=== PATIENT | male | born 1950 | race Caucasian/White ===

== ENCOUNTER 2017-12-04 13:57 | Inpatient (IN) | payer MEDICARE, OTHER ==
[~2017-12-04] VITALS: Ht 185.4 cm; Wt 97.3 kg
[~2017-12-04 13:57] MED LIST: ALPR1TAB10 PO; HYDR-3307 PO; LOSA100T6 PO; MORP-52 PO; amlodipine PO; losartan PO
[2017-12-04 16:55] LABS: BASOPHILS # (AUTO) 0.04 x10^3/uL (0-0.1); BASOPHILS % (AUTO) 0 % (0-1); EOSINOPHILS % (AUTO) 2 % (1-7); LYMPHOCYTES # (AUTO) 1.27 x10^3/uL (1-3.4); LYMPHOCYTES % (AUTO) 11 % (22-44); MD NO; MEAN CORPUSCULAR HEMOGLOBIN 31.9 pg (27.5-34.5); MEAN CORPUSCULAR HGB CONC 33.7 g/dL (33.2-36.2); MEAN CORPUSCULAR VOLUME 94.6 fL (81-97); MEAN PLATELET VOLUME 8.2 fL (7.4-10.4); MONOCYTES # (AUTO) 0.82 x10^3/uL (0.2-0.8); MONOCYTES % (AUTO) 7 % (2-9); NEUTROPHILS % (AUTO) 80 % (42-75); PLATELET COUNT 287 x10^3/uL (130-400); RED BLOOD COUNT 4.23 x10^6/uL (4.38-5.82); RED CELL DISTRIBUTION WIDTH 13.6 % (9.4-14.8)
[2017-12-04 17:08] LABS: ANION GAP 7 mmol/L (5-15); CALCIUM 8.5 mg/dL (8.5-10.1); CHLORIDE 109 mmol/L (98-107); CREATININE 0.82 mg/dL (0.7-1.3)
[2017-12-04] MEDS ORDERED: SODIUM CHLORIDE FLUSH 10ML SYR IVF PRN (17:30)
[2017-12-04] MEDS ORDERED: ONDANSETRON ODT 4 MG PO PRN (18:30)
[2017-12-04] MEDS ORDERED: PROMETHAZINE 25 MG/ML, 1ML IM PRN (18:30)
[2017-12-04 20:10] VITALS: BP 130/83
[2017-12-04] MEDS: KETOROLAC 30 MG/1 ML IM PRN (21:36)
[2017-12-04] MEDS: FAMOTIDINE 20 MG/2 ML IVPush SCH (22:14)
[2017-12-04] MEDS: D5%-LACTATED RINGERS 1,000 ML IV SCH (22:14)
[2017-12-04] MEDS: ACETAMINOPHEN 325 MG TABLET PO PRN (22:40)
[2017-12-05 00:28] VITALS: BP 130/83
[2017-12-05 03:06] VITALS: BP 144/88
[2017-12-05] MEDS ORDERED: ATORVASTATIN 80 MG TABLET PO ONE (06:30)
[2017-12-05] MEDS ORDERED: ASPIRIN 325 MG TABLET PO ONE (06:30)
[2017-12-05] MEDS: D5%-LACTATED RINGERS 1,000 ML IV SCH (06:35)
[2017-12-05] MEDS: FAMOTIDINE 20 MG/2 ML IVPush SCH (08:03)
[2017-12-05] MEDS: ACETAMINOPHEN 325 MG TABLET PO PRN (11:42)
[2017-12-05] MEDS: KETOROLAC 30 MG/1 ML IM PRN (11:44)
[2017-12-05] MEDS ORDERED: ACET325T14 PO (13:09)
[2017-12-05] MEDS ORDERED: IBUP-1221 PO (13:09)
== END 2017-12-05 13:20 | disposition left against medical advice (07) | DRG 917 ==
LOC: ED 17:00 → EDIP 17:18 → 3NE 18:53 → 4EST 12-05 08:23
PROVIDERS: ADMIT Internal Medicine; ATTEND Internal Medicine
PROC: 2W38X1Z Immobilization of Right Upper Extremity using Splint (ICD-10-PCS; principal; 2017-12-04)
DX: T40.2X1A Poisoning by other opioids, accidental (unintentional), initial encounter (principal); J96.01 Acute respiratory failure with hypoxia; S42.291A Other displaced fracture of upper end of right humerus, initial encounter for closed fracture; J98.11 Atelectasis; E66.3 Overweight; W10.9XXA Fall (on) (from) unspecified stairs and steps, initial encounter; I10 Essential (primary) hypertension; G89.29 Other chronic pain; G31.84 Mild cognitive impairment of uncertain or unknown etiology; J32.0 Chronic maxillary sinusitis; M79.7 Fibromyalgia; Z68.28 Body mass index [BMI] 28.0-28.9, adult; Z96.659 Presence of unspecified artificial knee joint; Y93.89 Activity, other specified; Y92.049 Unspecified place in boarding-house as the place of occurrence of the external cause; Y99.8 Other external cause status; F11.10 Opioid abuse, uncomplicated
CPT/HCPCS: 29105; 36415; 70450; 70544; 70553; 71045; 80048; 82040; 85025; 93306; 93880; 99285; J1885; 92523-GN; J7121; S0028

== ENCOUNTER 2018-03-04 17:52 | Emergency (ER) | payer MEDICARE ==
[~2018-03-04] VITALS: Ht 185.4 cm; Wt 84.0 kg
[~2018-03-04 17:52] MED LIST changes: +ACET325T14 PO; +IBUP-1221 PO
[2018-03-04 18:45] LABS: BASOPHILS # (AUTO) 0.07 x10^3/uL (0-0.1); BASOPHILS % (AUTO) 1 % (0-1); EOSINOPHILS # (AUTO) 0.23 x10^3/uL (0-0.4); EOSINOPHILS % (AUTO) 3 % (1-7); LYMPHOCYTES # (AUTO) 1.84 x10^3/uL (1-3.4); LYMPHOCYTES % (AUTO) 27 % (22-44); MD NO; MEAN CORPUSCULAR HEMOGLOBIN 31.9 pg (27.5-34.5); MEAN CORPUSCULAR VOLUME 93.9 fL (81-97); MEAN PLATELET VOLUME 8.4 fL (7.4-10.4); MONOCYTES # (AUTO) 0.86 x10^3/uL (0.2-0.8); MONOCYTES % (AUTO) 12 % (2-9); NEUTROPHILS # (AUTO) 3.95 x10^3/uL (1.8-6.8); NEUTROPHILS % (AUTO) 57 % (42-75); PLATELET COUNT 261 x10^3/uL (130-400); RED BLOOD COUNT 4.56 x10^6/uL (4.38-5.82); RED CELL DISTRIBUTION WIDTH 12.9 % (9.4-14.8)
[2018-03-04 18:53] LABS: ALANINE AMINOTRANSFERASE 62 U/L (12-78); ANION GAP 8 mmol/L (5-15); CALCIUM 8.9 mg/dL (8.5-10.1); CHLORIDE 109 mmol/L (98-107); CREATININE 0.84 mg/dL (0.7-1.3)
[2018-03-04 18:55] LABS: ALKALINE PHOSPHATASE 125 U/L (45-117); BILIRUBIN,TOTAL 2.6 mg/dL (0.2-1.0); TOTAL PROTEIN 6.9 g/dL (6.4-8.2)
[2018-03-04 18:57] LABS: ACETAMINOPHEN < 2 mcg/mL (10-30); SALICYLATE LEVEL < 1.7 mg/dL (2.8-20.0)
[2018-03-04 19:19] VITALS: BP 116/92
[2018-03-04 19:36] LABS: MICROSCOPIC NOT IND
[2018-03-04 19:47] LABS: CULTURE INDICATED? NO
[2018-03-04 19:48] LABS: AMPHETAMINE SCREEN, URINE Negative (Negative); BARBITURATE SCREEN, URINE Negative (Negative); BENZODIAZEPINE SCREEN, URINE Positive (Negative); CANNABINOID SCREEN, URINE Negative (Negative); COCAINE SCREEN, URINE Negative (Negative); METHADONE SCREEN, URINE Positive (Negative); OPIATE SCREEN, URINE Positive (Negative)
== END 2018-03-04 21:30 | disposition home or self-care (01) ==
LOC: ED 21:23
DX: F19.129 Other psychoactive substance abuse with intoxication, unspecified (principal); R41.0 Disorientation, unspecified; I10 Essential (primary) hypertension
CPT/HCPCS: 36415; 80053; 80307; 80329; 81003; 85025; 93005; 99285; G0480